=== PATIENT | female | born 1985 | race American Indian/Alaskan Native ===

== ENCOUNTER 2017-01-15 01:57 | Emergency (ER) | payer SELFPAY | END 2017-01-15 01:58 | disposition left against medical advice (07) | LOC: ED 01:57 | DX: L08.9 Local infection of the skin and subcutaneous tissue, unspecified (principal); Z53.21 Procedure and treatment not carried out due to patient leaving prior to being seen by health care provider ==

== ENCOUNTER 2018-12-01 16:45 | Emergency (ER) | payer OTHER ==
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
[2018-12-01 16:54] VITALS: BP 122/69
[2018-12-01] MEDS ORDERED: PERCOCET 5/325 PO ONE (17:18)
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
--- NOTE | 2018-12-01 19:20 | XRay Report ---
PROCEDURE: XR SPINE THORACIC 3V TECHNIQUE: Thoracic spine, AP and lateral views HISTORY: back pain COMPARISONS: None available FINDINGS: No scoliosis. Vertebral body heights and alignment are maintained. Disc spaces are preserved. IMPRESSION: No acute osseous abnormality. This document is electronically signed by Lucille Lara MD., December 01 2018 07:18:12 PM ET
--- NOTE | 2018-12-01 19:21 | XRay Report ---
PROCEDURE: XR SPINE LUMBOSACRAL 2-3V TECHNIQUE: Lumbosacral spine, 2 views HISTORY: low back pain COMPARISONS: None FINDINGS: Linear metallic density overlies the lumbosacral spine on the AP view. The vertebral body heights and alignment are maintained. Disc spaces are preserved. No scoliosis. IMPRESSION: No acute osseous abnormality. This document is electronically signed by Lucille Lara MD., December 01 2018 07:19:12 PM ET
--- NOTE | 2018-12-01 19:22 | XRay Report ---
PROCEDURE: XR HAND 3+V RT TECHNIQUE: Right hand, 3 views HISTORY: right hand pain COMPARISONS: None available FINDINGS: There is a nondisplaced fracture at the base of the fifth metacarpal. No joint dislocation. No radiop aque foreign body. IMPRESSION: Nondisplaced fracture at the base of the fifth metacarpal. This document is electronically signed by Lucille Lara MD., December 01 2018 07:20:07 PM ET
== END 2018-12-01 19:20 | disposition home or self-care (01) ==
LOC: ED 16:45
DX: S62.316A Displaced fracture of base of fifth metacarpal bone, right hand, initial encounter for closed fracture (principal); M54.5 Low back pain; F12.10 Cannabis abuse, uncomplicated; Y08.89XA Assault by other specified means, initial encounter; Y93.89 Activity, other specified; Y92.89 Other specified places as the place of occurrence of the external cause; Y99.8 Other external cause status
CPT/HCPCS: 72072; 72100